=== PATIENT | male | born 2000 ===

== ENCOUNTER 2018-12-11 20:30 | Emergency (ER) | payer SELFPAY ==
--- NOTE | 2018-12-11 20:35 | UC ---
Skin Complaint HPI - HPI Summary HPI Summary: 18 yo male presents with LEFT eyebrow lac. He tells me that about 1 hour [employer] he was playing basketball with friends and was hit with an inadvertent elbow to his left eyebrow. Sustained a small laceration here. No LOC. UTD on tetanus. - History of Current Complaint Time Seen by Provider: 12/11/18 20:34 Stated Complaint: FACIAL LAC Hx Obtained From: Patient Onset/Duration: Sudden Onset Onset Severity: Mild Current Severity: Mild Pain Intensity: 2 Pain Scale Used: 0-10 Numeric - Allergy/Home Medications Allergies/Adverse Reactions: Allergies Allergy/AdvReac Type Severity Reaction Status Date / Time No Known Allergies Allergy Verified 12/11/18 20:42 Home Medications: Home Medications NK [No Home Medications Reported] 12/11/18 [History Confirmed 12/11/18] PMH/Surg Hx/FS Hx/Imm Hx - Additional Past Medical History Additional PMH: None - Surgical History Surgical History: None - Family History Known Family History: Positive: None - Social History Occupation: Student Lives: Dormitory/Roommates Alcohol Use: Occasionally Substance Use Type: None Smoking Status (MU): Never Smoked Tobacco Review of Systems All Other Systems Reviewed And Are Negative: Yes Constitutional: Positive: Negative Skin: Positive: Other - Laceration left eyebrow Eyes: Positive: Negative Respiratory: Positive: Negative Cardiovascular: Positive: Negative Neurovascular: Positive: Negative Neurological: Positive: Negative Psychological: Positive: Negative Physical Exam - Summary Physical Exam Summary: GENERAL: NAD. WDWN. No pain distress. SKIN: LEFT EYEBROW: Medial aspect with 1.0cm stellate shaped laceration just through the epidermis. Scant active bleeding. NTTP. Clean wound without FB Eyes: EOM intact without pain. PERRLA . CHEST: No accessory muscle use. Breathing comfortably and in no distress. CV: Pulses intact. Cap refill <2seconds NEURO: Alert. PSYCH: Age appropriate behavior. Triage Information Reviewed: Yes Vital Signs Reviewed: Yes Laceration Repair - Laceration Repair 1 Description: Stellate Laceration Size After Repair: Length (cm) - 1.0 Modified For Repair: No Cleansing Completed Via Routine Prep: Yes Closure Material: Sutures - #3 Closure Method: Single Layer Suture Of: Skin Suture Type: Prolene - 6-0 Course/Dx - Course Course Of Treatment: The procedure was explained to the pt and all questions were answered. A time out was performed, witnessed, and signed. The area was cleansed with NS. 0.5mL of 2% lidocaine without epi was administered and good anesthetization was achieved. In the usual sterile fashion, THREE 6-0 prolene interrupted sutures were placed. The wound was bandaged with a bandaid . Pt tolerated procedure well. - Diagnoses Provider Diagnosis: Eyebrow laceration Discharge - Sign-Out/Discharge Documenting (check all that apply): Patient Departure All imaging exams completed and their final reports reviewed: No Studies - Discharge Plan Condition: Stable Disposition: HOME Patient Education Materials: Care For Your Stitches (ED), Laceration (DC) Referrals: No Primary Care Phys,NOPCP [Primary Care Provider] - Additional Instructions: If you develop a fever, shortness of breath, chest pain, new or worsening symptoms - please call your PCP or go to the ED immediately. 1) Please keep the area bandaged, clean, dry, and intact for the next 24- 48hours. 2) If you develop a fever, colored or thick discharge, increased pain or swelling - please call your PCP or go to the ED. 3) Please return in 5 days to have your THREE sutures removed. Change the band-aid daily until well healed (likely 4-5 days) - Billing Disposition and Condition Condition: STABLE Disposition: Home - Attestation Statements Provider Attestation: Per institutional requirements, I have reviewed the chart, however, I was not consulted specifically or made aware of this patient by the midlevel provider. I did not personally evaluate, interact with , or disposition this patient.
[2018-12-11 20:42] VITALS: BP 135/53
[2018-12-11] MEDS ORDERED: Lidocaine 2% PF * 5 ML VIAL INJ ONE (20:49)
== END 2018-12-11 21:22 | disposition home or self-care (01) ==
LOC: UCEAST 20:30
DX: S01.112A Laceration without foreign body of left eyelid and periocular area, initial encounter (principal); W50.0XXA Accidental hit or strike by another person, initial encounter
CPT/HCPCS: 12011; 99201; G0463